=== PATIENT | female | born 1960 | race Caucasian/White ===

== ENCOUNTER 2024-10-30 16:22 | Observation (INO) | payer BC, SELFPAY ==
[2024-10-30] VITALS (7 sets, daily range): BP systolic 109–144; BP diastolic 70–96; BMI 23.8; BMI 22.6
[2024-10-30 14:55] LABS: Hematocrit 40.6 % (37.0-47.0); Hemoglobin 13.8 g/dL (12.0-16.0); Mean Corpuscular Hgb 32.5 pg (27.0-31.0); Mean Corpuscular Volume 95.5 fL (81.0-99.0); Mean Platelet Volume 10.7 fL (7.4-10.4); Platelet Count 200 10^3/uL (130-400); Red Blood Cell Count 4.25 10^6/uL (4.20-5.40); Red Cell Dist. Width 13.6 % (11.5-14.5); White Blood Cell Count 6.8 10^3/uL (4.8-10.8)
[2024-10-30 15:05] LABS: INR 0.97; PT 13.2 Sec (11.4-14.6)
[2024-10-30 15:06] LABS: APTT 31.6 Sec (23.4-35.0)
[2024-10-30 15:07] LABS: ALT (SGPT) 18 U/L (0-35); AST (SGOT) 24 U/L (14-36); Albumin 4.7 g/dl (3.5-5.0); Alkaline Phosphatase 66 U/L (38-126); Blood Urea Nitrogen 20 mg/dl (7-17); Calcium 9.9 mg/dl (8.4-10.2); Carbon Dioxide 27 mmol/L (22-30); Chloride 106 mmol/L (98-107); Glucose 88 mg/dl (70-99); Sodium 143 mmol/L (135-145); Total Bilirubin 0.8 mg/dl (0.2-1.3); Total Protein 7.3 g/dl (6.3-8.2); eGFR > 60.00
[2024-10-30 15:15] LABS: Troponin I < 0.012 ng/ml
[2024-10-30 15:20] LABS: % Basophils 0.6 % (0-2); % Eosinophils 2.6 % (0-6); % Immature Granulocytes 0.1 % (0-0.5); % Lymphocytes 52.5 % (20.5-51.1); % Monocytes 9.1 % (1.7-9.3); % Neutrophils 35.1 % (42.2-75.2); Absolute Eosinophils 0.2 10^3/uL (0-0.7); Absolute Lymphocytes 3.6 10^3/uL (1.2-3.4); Absolute Monocytes 0.6 10^3/uL (0.1-0.6); Absolute Neutrophils 2.4 10^3/uL (1.4-6.5); Nucleated Red Blood Cells % 0 %
--- NOTE | 2024-10-30 15:22 | ED.CVA ---
History of Present Illness
General
Chief Complaint: CVA/TIA Symptoms
Source: patient
Exam Limitations: none
Time Seen by Provider: 10/30/24 15:02
Nursing documentation reviewed up to this point in time: agreed with
Onset of Stroke Symptoms
Onset of symptoms known: Yes
Date of onset of symptoms: 10/30/24
History of Present Illness
History of Present Illness:
64-year-old female with no reported chronic medical issues presents to the emergency room with her for evaluation of left arm numbness and slurred speech. Patient reports onset of symptoms while she was talking on the phone at work around
1:30 PM. She says that she felt her left arm go completely numb and get very heavy. She was sitting down at the time, does not believe she had any weakness or numbness in the left leg. She says that a coworker asked her what was wrong and noted
that she was having slurred speech. It sounds like the symptoms lasted for a few minutes and have essentially resolved�patient says that she now only has some residual tingling in her left arm. No longer feels any weakness, numbness and no longer
feels she is slurring her speech. She says she did not have any change in her vision, did not have any headache. She has not had similar symptoms in the past. She denies any known cardiac history. She says that she was hospitalized at [facility] in April 2023�she says that she had repeated episodes of passing out and they told her that she may have had TIAs.
Review of Systems
Review of Systems
All Other Systems: ROS reviewed and negative except as documented in HPI and ROS
Constitutional: Denies fever
Respiratory: Denies trouble breathing
Cardiac: Denies chest pain
ABD/GI: Denies abdominal pain
Musculoskeletal: Denies neck pain or back pain
Neurological: Reports weakness and numbness; Denies dizzy or headache
Phy Exam
Physical Exam
Physical Exam:
General: Awake, alert; no acute distress
Head: Normocephalic, atraumatic
Eyes: Conjunctiva normal, EOMI, pupils equal round and reactive to light bilaterally, visual carmen intact
Throat: Airway intact, handling secretions
Neck: Trachea midline, supple without meningismus
Lungs: Clear to auscultation bilaterally, no wheezing, rales, rhonchi
Heart: Regular rate and rhythm, no murmurs, gallops, or rubs
Abd: Soft, non distended, nontender
Neuro: Cranial nerves intact 2 through 12, speech fluid no dysarthria or aphasia, no limb ataxia, motor and sensory intact and symmetric upper and lower extremities both proximally and distally
Skin: no rash
Extremities: No edema in extremities, warm and well-perfused
Scores
NIH Stroke Score
Level of Consciousness: 0 - Alert
LOC Questions: 0-Answers both correctly
LOC Commands: 0-Performs both correctly
Best Horizontal Gaze: 0-Normal
Visual Carmen: 0=Normal, no visual loss
Facial Palsy: 0=Normal, symmetrical
Motor - Right Arm: 0=No drift 10 seconds
Motor - Left Arm: 0=No drift 10 seconds
Motor - Right Le-No drift 5 seconds
Motor - Left Le-No drift 5 seconds
Limb Ataxia: 0-Absent
Sensation: 0-Normal
Best Language: 0-No aphasia
Dysarthria: 0-Normal
Extinction and Inattention: 0-No abnormality
Total Score:: 0
Heart Failure Risk
Heart Failure Risk Score: Not Applicable
Heart Score for Chest Pain Patients
STEMI patient?: Not applicable
Withdrawal Assessment of Alcohol
Withdrawal Assessment Completed?: Not applicable
Course
Orders/Labs/Results
Orders:
Orders
10/30/24 14:29
CT Head W/o Iv Contrast Urgent
Comment:
Reason For Exam: numbness/ slurred speech for two minutes
10/30/24 14:34
Electrocardiogram (*1) Urgent
Reason for Study: Other
Other Reason for Exam: Possible Stroke
EKG- Treatment ONCE
10/30/24 14:42
Complete Blood Count/With Diff Urgent
Comprehensive Metabolic Panel Urgent
PTT Urgent
Prothrombin Time Urgent
Troponin I Urgent
10/30/24 15:22
NEUROLOGY CONSULT Urgent
Consulting Provider: Paulina Amato
Was physician already notified: Yes
10/30/24 15:35
CT Head & Neck Angio W/wo IV Urgent
Comment:
Reason For Exam: left arm numb/weak, slurred speech
Aspirin 325 mg PO NOW STA
Clopidogrel Bisulfate [Plavix] 300 mg PO NOW STA
Abnormal Lab Results
10/30/24
14:42
MCH 32.5 H pg
(27.0-31.0)
MPV 10.7 H fL
(7.4-10.4)
Absolute Lymphs (auto) 3.6 H 10^3/uL
(1.2-3.4)
Neutrophils % 35.1 L %
(42.2-75.2)
Lymphocytes % 52.5 H %
(20.5-51.1)
BUN 20 H mg/dl
(7-17)
10/30/24 14:42
10/30/24 14:42
Vital Signs
Initial and Last Documented VS:
Initial Vital Signs
Temp Pulse Resp BP Pulse Ox
37.1 C 65 18 136/96 97
10/30/24 14:29 10/30/24 14:29 10/30/24 14:10/30/24 14:10/30/24 14:29
Last Documented Vital Signs
Temp Pulse Resp BP Pulse Ox
37.1 C 65 18 136/96 97
10/30/24 14:29 10/30/24 14:29 10/30/24 14:29 10/30/24 14:29 10/30/24 14:29
MDM/Problems Addressed
Differential Diagnosis Includes:
TIA, stroke, complex migraine, seizure, radiculopathy
MDM/Problems Addressed:
64-year-old female presents for evaluation after transient left arm numbness/heaviness and slurred speech. Symptoms have essentially resolved although she reports some persistent tingling in the left arm. Vitals and exam as above. She had labs
done in triage including CBC and CMP. Check EKG. She was sent for CT head in triage�radiology report pending but on my independent review no acute pathology noted. No stroke alert for now given resolution of symptoms but concern clinically for
TIA. Discussed case with neurology for evaluation at bedside. Monitor closely reassess after the above.
Neurology evaluated bedside�recommended CTA head and neck, full dose aspirin and Plavix, admit to hospitalist service. Case discussed with hospitalist.
*Radiology
Radiology exam reviewed: preliminary read by ED provider and radiology read reviewed
*Pulse Oximetry
Patient hypoxic: no
*EKG
Interpreted by ED Provider?: Yes
Heart Rate: 57
Rate: bradycardiac
Rhythm: sinus
Sutter: normal axis
Interval: normal interval
QRS Pattern: normal QRS
Ischemia: no ischemia
*Critical Care Note
Total Time (30-74mins, 75-104mins- exclusive of procedures): Not Applicable
Data Reviewed
Source: patient and spouse
Patient Management
Discussion with other providers: Hospitalist (Discussed with hospitalist) and Material Liaison (Discussed with neurology)
Escalation/DeEscalation of care consider admission/obs:
Admission indicated
ED Attending Note
-
Portions of this chart may have been created with voice recognition software.� Occasional wrong word or��sound alike� substitutions may have occurred due to the inherent limitations of voice recognition software.
Discharge Plan
Departure
Discharge Problem:
TIA (transient ischemic attack)
Interventions
Interventions:
*Risk Screen - Suicide Last Done: 10/30/24 14:30
*General Assessment Last Done: 10/30/24 14:30
*ED- Fall Risk Assessment Last Done: 10/30/24 15:38
*ED COVID-19 Vaccine History Last Done: 10/30/24 15:38
Discharge Date and Time
Print Language: YI
--- NOTE | 2024-10-30 15:55 | CON.NEURO ---
Consultation
Order
Date of Consultation: 10/30/24
Requesting Provider: Luc Hinojosa MD
Reason for Consult: Stroke symptoms
Neurology Consultation Note.
HPI: This is a 64-year-old right-handed woman who presented to [facility] on 10/30/2024 with speech and sensory abnormalities. According to the patient she developed simultaneous acute numbness in the left hand involving all digits
and distal forearm with associated transient dysarthria noted by her coworker at 1:30 PM today. No reports of change in vision, strength, balance, abnormal movements, headache with similar episodes in the past.
ER VS: 136/96, 65, afebrile
EKG: Sinus bradycardia at 57, QTc�401 ms
Labs: Normal WBCs, glucose, platelets
CT head wo contrast� mild atrophy, no acute infarcts.
PMH: Squamous cell carcinoma, cervical DJD
PSH: right dorsal wrist skin biopsy, tubal ligation, splenectomy, appendectomy
SH: , district resource officer, non-smoker, social alcohol use
FH: Father�gastric cancer, mother� acutely in her 80s
All:NKDA
ROS: Constitutional: Negative. Negative for chills, fever and unexpected weight change.
HENT: Negative for ear pain, hearing loss, tinnitus and trouble swallowing.
Eyes: Negative. Negative for photophobia, pain and visual disturbance.
Respiratory: Negative for cough, choking and shortness of breath.
Cardiovascular: Negative for chest pain, palpitations and leg swelling.
Gastrointestinal: Negative for abdominal pain and vomiting.
Endocrine: Negative. Negative for cold intolerance.
Genitourinary: Negative for dysuria, flank pain and urgency.
Musculoskeletal: Negative for back pain, gait problem, neck pain and neck stiffness.
Skin: Negative for rash.
Allergic/Immunologic: Negative. Negative for immunocompromised state.
Neurological: Positive for transient dysarthria, ongoing left hand numbness
Psychiatric/Behavioral: Negative for behavioral problems, confusion and hallucinations.
General: Well developed. In no acute distress.
Cardio: Regular rate and rhythm without murmur. Extremities are without cyanosis or edema.
Neuro:
Mental Status: Alert, oriented to person, place, and date. Normal attention and recall. Good fund of knowledge. Follows complex requests across the midline. Comprehension, naming, and repetition intact. Immediate and delayed recall 3/3.
Cranial Nerves: Pupils are equally round and reactive to light. EOMs full. Visual carmen full to confrontation. No ptosis. No nystagmus. V1-V3 intact to light touch and pinprick bilaterally, symmetric. Face symmetric. Normal hearing AU. The
palate elevated well. SCMs and traps 5/5. Tongue midline. No dysarthria.
Motor: Normal bulk and tone. No pronator or arm drift. Strength 5/5 throughout. No clonus.
Reflexes: 2+ throughout the upper extremities and knees. Plantar responses flexor bilaterally. Negative Cassandra's bilaterally
Sensory: Normal light touch. No extinction to DSS
Coordination: No dysmetria or tremor.
Gait: deferred
NIH -1
Assessment and Plan:
I. Right subcortical infarct. Not a candidate for IV TNK due to low NIH stroke scale and clinical improvement
II. History of splenectomy
III. Asymptomatic sinus bradycardia
-Continue Telemetry monitoring
-Plavix load, continue DAPT for 21 days
-MRI without fady
-Please follow-up CTA head and neck results
-Check lipid panel, hemoglobin A1c, EtOH level, urine drug tox
-Will follow-up
-DVT prophylaxis.
I personally reviewed all radiology and labs along with past medical records pertinent to current medical problems. Total time spent in patient care is 60 minutes.
Thank you for allowing us to participate in the care of this patient. We will continue to follow. Please do not hesitate to contact us with any questions or concerns.
Subjective/Objective
Subjective Data
Date of Service: October 30, 2024
Objective Data
Vital Signs
Temp Pulse Resp BP Pulse Ox
37.1 C 65 18 136/96 97
10/30/24 14:29 10/30/24 14:29 10/30/24 14:29 10/30/24 14:29 10/30/24 14:29
Lab Results
10/30/24 14:42
10/30/24 14:42
PT 13.2 Sec (11.4-14.6) 10/30/24 14:42
INR 0.97 10/30/24 14:42
APTT 31.6 Sec (23.4-35.0) 10/30/24 14:42
Sodium 143 mmol/L (135-145) 10/30/24 14:42
Potassium 4.0 mmol/L (3.5-5.1) 10/30/24 14:42
BUN 20 mg/dl (7-17) H 10/30/24 14:42
Glucose 88 mg/dl (70-99) 10/30/24 14:42
Calcium 9.9 mg/dl (8.4-10.2) 10/30/24 14:42
Patient Allergies
No Known Allergies Allergy (Verified 10/30/24 14:30)
Vital Signs and Labs
-
Vital Signs and Labs:
Vital Signs
Temp Pulse Resp BP Pulse Ox
37.1 C 65 18 136/96 97
10/30/24 14:29 10/30/24 14:29 10/30/24 14:29 10/30/24 14:29 10/30/24 14:29
Lab Results
10/30/24 14:42
10/30/24 14:42
PT 13.2 Sec (11.4-14.6) 10/30/24 14:42
INR 0.97 10/30/24 14:42
APTT 31.6 Sec (23.4-35.0) 10/30/24 14:42
Sodium 143 mmol/L (135-145) 10/30/24 14:42
Potassium 4.0 mmol/L (3.5-5.1) 10/30/24 14:42
BUN 20 mg/dl (7-17) H 10/30/24 14:42
Glucose 88 mg/dl (70-99) 10/30/24 14:42
Calcium 9.9 mg/dl (8.4-10.2) 10/30/24 14:42
--- NOTE | 2024-10-30 16:06 | HPS.HSE ---
Family Physician
-
Family Physician:
Chief Complaint
-
left arm numbness and slurred speech
History of Present Illness
HPI
64F Rt handed , no significant PMHx seen at ER:
- evaluation of left arm numbness and slurred speech
- Patient reports onset of symptoms while she was talking on the phone at work around 1:30 PM. S
- she felt her left arm go completely numb and get very heavy
- she does not believe she had any weakness or numbness in the left leg.
- coworker a noted that she was having slurred speech.
- the symptoms lasted for a few minutes and have essentially resolved
- now only has some residual tingling in her left arm.
- No longer feels any weakness, numbness
- no longer feels she is slurring her speech
- no change in her vision, did not have any headache.
- not had similar symptoms in the past.
- denies any known cardiac history.
HX admission at [facility] in April 2023 for repeated episodes of passing out and they told her that she may have had TIAs.
Medical History
Past Medical History
Past Medical History: Reports Other
Additional Past Medical History:
HX admission at [facility] in April 2023 for repeated episodes of passing out and they told her that she may have had TIAs.
Past Surgical History: Reports None
Social History
Tobacco: Non-smoker
Alcohol: None
Living: With Family
Family History
Family History: Not pertinent
Allergies / Home Medications
Allergies reflects when Allergies were last updated in [facility].
Home Medications with original date entered in [facility]
Allergy/Medication List:
Allergies
Allergy/AdvReac Type Severity Reaction Status Date / Time
No Known Allergies Allergy Verified 10/30/24 14:30
Home Medications
Prevagen 1 cap PO DAILY 10/30/24
biotin 10,000 mcg chewable tablet (Hair, Skin and Nails (biotin)) 10,000 mcg PO DAILY 10/30/24
calcium 600 mg (as carbonate)-vitamin D3 5 mcg (200 unit) tablet 1 tab PO DAILY 10/30/24
therapeutic multivitamin 1 tab PO DAILY 10/30/24
Review of Systems
-
Constitutional: Reports No Symptoms
EENT: Reports No Symptoms
Respiratory: Reports No Symptoms
Cardiac: Reports No Symptoms
Abdomen/GI: Reports No Symptoms
: Reports No Symptoms
Musculoskeletal: Reports No Symptoms
Skin: Reports No Symptoms
Neurological: Reports See HPI
Endocrine: Reports No Symptoms
Hematologic/Lymphatic: Reports No Symptoms
Psych: Reports No Symptoms
Physical Exam
Vital Signs
Vital Signs
Temp Pulse Resp BP Pulse Ox
98.7 F 65 18 136/96 97
10/30/24 14:29 10/30/24 14:29 10/30/24 14:29 10/30/24 14:29 10/30/24 14:29
Physical Exam
General: Well Developed, Well Nourished and No Apparent Distress
HEENT: NormoCephalic, Moist mucous membranes and Atraumatic
Respiratory: Clear
Cardiac: S1/S2 and Regular Rhythm; No Murmur or Rub
GI: Soft, Non Tender, Non Distended and Normal Bowel Sounds; No Organomegaly
Rectal: Deferred by Provider
Musculoskeletal: No Clubbing, No Cyanosis and No Edema
Skin: No Rash
Neuro: Nonfocal/grossly intact, Cranial Nerves Intact and Other (NIH zerto upon admission , Cranial nerves intact 2 through 12, speech fluent , no dysarthria or aphasia, no limb ataxia, motor and sensory intact and symmetric upper and lower
extremities both proximally and distally); No Slurred Speech or Facial Droop
Psych: Calm
Laboratory Results
-
10/30/24 14:42
10/30/24 14:42
Laboratory Results
PT 13.2 Sec (11.4-14.6) 10/30/24 14:42
INR 0.97 10/30/24 14:42
APTT 31.6 Sec (23.4-35.0) 10/30/24 14:42
Total Bilirubin 0.8 mg/dl (0.2-1.3) 10/30/24 14:42
AST 24 U/L (14-36) 10/30/24 14:42
ALT 18 U/L (0-35) 10/30/24 14:42
Alkaline Phosphatase 66 U/L (38-126) 10/30/24 14:42
Troponin I < 0.012 ng/ml 10/30/24 14:42
Data Reviewed
-
CT Scan: Image Personally Visualized and interpreted and Other (pending CTA H & N )
Medical Tests (Nuc Med, Echo, EKG etc): Report Reviewed by me
Lab Data: Labs Reviewed by me
Impression/Plan
-
Vital Signs
Temp Pulse Resp BP Pulse Ox
98.7 F 65 18 136/96 97
10/30/24 14:29 10/30/24 14:29 10/30/24 14:29 10/30/24 14:29 10/30/24 14:29
Labs
10/30/24
14:42
WBC 6.8
Hgb 13.8
Plt Count 200
BUN 20 H
Creatinine 0.7
eGFR > 60.00
Troponin I < 0.012
EKG
SINUS BRADYCARDIA
LOW VOLTAGE QRS
BORDERLINE ECG
NO PREVIOUS ECGS AVAILABLE
Confirmed by MADDY LEROY MD ([id number]) on 10/30/2024 3:17:42 PM
HCT pending report
CTA H & N pending
NO PRIOR hospitalist admission:
ASSESSMENT & PLAN
TIA/CVA to evaluate
- pw transient left arm numbness/weakness and slurred speech
- sxs resolved except some tingling LUE
- seen by neuro (Dr. Amato) who rec'd ASA/Plavix
- CTA head/neck, admission.
- Brain mTI
- ECHO
- A1C and Lipids
- Neuro consult follow up
DVT Px: SCD
Full code
Obs TLM
[2024-10-30] MEDS: ASPIRIN 325 MG PO (16:22)
[2024-10-30] MEDS: PLAVIX 300 MG PO (16:22)
[2024-10-30] MEDS: LIPITOR 20 MG PO (19:05)
[2024-10-31] VITALS (7 sets, daily range): BP systolic 111–130; BP diastolic 73–85; PULSE 68
[2024-10-31] MEDS: PLAVIX 75 MG PO (07:43)
[2024-10-31] MEDS: LOW STRENGTH ASPIRIN 81 MG PO (07:43)
--- NOTE | 2024-10-31 08:58 | PTOTSP ---
Speech Therapy Evaluation:
Pt presents with functional oral phase and no signs concerning for pharyngeal dysphagia/aspiration. Currently, imaging negative, pt afebrile, pt on room air, WBC WNL, and pt passed 3oz swallow screen. Pt denied any previous/current swallow
dysfunction or hx of PNAs.
Recommend:
1. Continue IDDSI Level 7 (regular) solids and thin liquids
2. Medications as tolerated
3. General aspiration precautions
4. HONEY EXTRACTOR to s/o - please reconsult if indicated
[2024-10-31 09:03] LABS: HDL Cholesterol 66 mg/dl; LDL Cholesterol, Calculated 94 mg/dl; Total Cholesterol 176 mg/dl (50-199); Triglyceride 84 mg/dl (10-149); Very Low Density Lipoprotein 16 mg/dl (0-30)
[2024-10-31 10:22] LABS: Glycohemoglobin (HgbA1c) 5.3 % (4.0-5.6)
--- NOTE | 2024-10-31 10:49 | W.PN.NEURO.1 ---
Today's Communication / Plan
-
.
Subjective/Objective
Subjective Data
Date of Service: October 31, 2024
Neurology follow-up note
Ms. Orona states that her left hand numbness have completely resolved in 6 hours after symptom onset. No reports of headaches, change in speech, vision or strength.
The patient has been normotensive and afebrile.
Brain MRI is pending.
LDL�94.
PMH: Squamous cell carcinoma, cervical DJD
PSH: right dorsal wrist skin biopsy, tubal ligation, splenectomy, appendectomy
SH: , hotel security officer, non-smoker, social alcohol use
FH: Father�gastric cancer, mother� acutely in her 80s
All:NKDA
ROS: Constitutional: Negative. Negative for chills, fever and unexpected weight change.
HENT: Negative for ear pain, hearing loss, tinnitus and trouble swallowing.
Eyes: Negative. Negative for photophobia, pain and visual disturbance.
Respiratory: Negative for cough, choking and shortness of breath.
Cardiovascular: Negative for chest pain, palpitations and leg swelling.
Gastrointestinal: Negative for abdominal pain and vomiting.
Endocrine: Negative. Negative for cold intolerance.
Genitourinary: Negative for dysuria, flank pain and urgency.
Musculoskeletal: Negative for back pain, gait problem, neck pain and neck stiffness.
Skin: Negative for rash.
Allergic/Immunologic: Negative. Negative for immunocompromised state.
Neurological: Positive for transient dysarthria and left hand numbness
Psychiatric/Behavioral: Negative for behavioral problems, confusion and hallucinations.
General: Well developed. In no acute distress.
Cardio: Regular rate and rhythm without murmur. Extremities are without cyanosis or edema.
Neuro:
Mental Status: Alert, oriented to person, place, and date. Normal attention and recall. Good fund of knowledge. Follows complex requests across the midline. Comprehension, naming, and repetition intact. Immediate and delayed recall 3/3.
Cranial Nerves: Pupils are equally round and reactive to light. EOMs full. Visual carmen full to confrontation. No ptosis. No nystagmus. V1-V3 intact to light touch and pinprick bilaterally, symmetric. Face symmetric. Normal hearing AU. The
palate elevated well. SCMs and traps 5/5. Tongue midline. No dysarthria.
Motor: Normal bulk and tone. No pronator or arm drift. Strength 5/5 throughout. No clonus.
Reflexes: 2+ throughout the upper extremities and knees. Plantar responses flexor bilaterally. Negative Cassandra's bilaterally
Sensory: Normal light touch. No extinction to DSS
Coordination: No dysmetria or tremor.
Gait: deferred
NIH -1
Assessment and Plan:
I. TIA
II. History of splenectomy
III. Asymptomatic sinus bradycardia
-Continue Telemetry monitoring
-Plavix load, continue DAPT for 21 days.
-Lipitor 40 mg once a day
-MRI without fady
-Please follow-up CTA head and neck results
-Please follow-up hemoglobin A1c, EtOH level, urine drug tox
-Will follow-up
-DVT prophylaxis.
I personally reviewed all radiology and labs along with past medical records pertinent to current medical problems. Total time spent in patient care is 35 minutes.
Thank you for allowing us to participate in the care of this patient. We will continue to follow. Please do not hesitate to contact us with any questions or concerns.
Objective Data
Vital Signs
Temp Pulse Resp BP Pulse Ox
36.4 C 60 20 115/73 97
10/31/24 07:30 10/31/24 07:30 10/31/24 07:30 10/31/24 07:30 10/31/24 07:30
Lab Results
10/30/24 14:42
10/30/24 14:42
PT 13.2 Sec (11.4-14.6) 10/30/24 14:42
INR 0.97 10/30/24 14:42
APTT 31.6 Sec (23.4-35.0) 10/30/24 14:42
Sodium 143 mmol/L (135-145) 10/30/24 14:42
Potassium 4.0 mmol/L (3.5-5.1) 10/30/24 14:42
BUN 20 mg/dl (7-17) H 10/30/24 14:42
Glucose 88 mg/dl (70-99) 10/30/24 14:42
Calcium 9.9 mg/dl (8.4-10.2) 10/30/24 14:42
LDL Cholesterol, Calc 94 mg/dl 10/31/24 07:30
Patient Allergies
No Known Allergies Allergy (Verified 10/30/24 14:30)
Vital Signs and Labs
-
Vital Signs and Labs:
Vital Signs
Temp Pulse Resp BP Pulse Ox
36.4 C 60 20 115/73 97
10/31/24 07:30 10/31/24 07:30 10/31/24 07:30 10/31/24 07:30 10/31/24 07:30
Lab Results
10/30/24 14:42
10/30/24 14:42
PT 13.2 Sec (11.4-14.6) 10/30/24 14:42
INR 0.97 10/30/24 14:42
APTT 31.6 Sec (23.4-35.0) 10/30/24 14:42
Sodium 143 mmol/L (135-145) 10/30/24 14:42
Potassium 4.0 mmol/L (3.5-5.1) 10/30/24 14:42
BUN 20 mg/dl (7-17) H 10/30/24 14:42
Glucose 88 mg/dl (70-99) 10/30/24 14:42
Calcium 9.9 mg/dl (8.4-10.2) 10/30/24 14:42
LDL Cholesterol, Calc 94 mg/dl 10/31/24 07:30
Medications
-
Medications:
Generic Name Dose Route Start Last Admin
Trade Name Freq PRN Reason Stop Dose Admin
Acetaminophen 650 mg 10/30/24 18:14
Acetaminophen 650 Mg Rectal Suppository RECTAL 11/27/24 18:13
Q4HPRN PRN
RAINEY, mild pain, or temp >100.4F
Acetaminophen 650 mg 10/30/24 18:14
Acetaminophen 325 Mg Tablet PO 11/27/24 18:13
Q4HPRN PRN
RAINEY, mild pain, or temp >100.4F
Aspirin 81 mg 10/31/24 08:00 10/31/24 07:43
Aspirin 81 Mg Chewable Tablet PO 11/28/24 07:59 81 mg
DAILY ALEJANDRA Administration
Atorvastatin Calcium 20 mg 10/30/24 18:14 10/30/24 19:05
Atorvastatin (Lipitor) 20 Mg Tablet PO 11/27/24 18:13 20 mg
QPM ALEJANDRA Administration
Clopidogrel Bisulfate 75 mg 10/31/24 08:00 10/31/24 07:43
Clopidogrel 75 Mg Tablet PO 11/28/24 07:59 75 mg
DAILY ALEJANDRA Administration
Sodium Chloride 0 flush 10/30/24 19:00
Sodium Chloride 0.9% (Flush) Syringe IV 11/27/24 18:59
PER PROTOCOL ALEJANDRA
Home Medications
-
Home Medications
Prevagen 1 cap PO DAILY 10/30/24
biotin 10,000 mcg chewable tablet (Hair, Skin and Nails (biotin)) 10,000 mcg PO DAILY 10/30/24
calcium 600 mg (as carbonate)-vitamin D3 5 mcg (200 unit) tablet 1 tab PO DAILY 10/30/24
therapeutic multivitamin 1 tab PO DAILY 10/30/24
--- NOTE | 2024-10-31 12:35 | CM ---
CM reviewed chart, patient seen bedside with spouse, initial assessment completed. Patient resides with spouse in a split level home, no steps to enter, four steps to split level. Patient is independent with ADLs/IADLs, denies use of DME, no VN/SNF
history. Patient confirms PCP Canelo Saucedo, [facility], confirms prescription coverage. OBS form reviewed and provided to patient, refused to sign, placed in chart. Patient hopeful for discharge today. CM will continue to follow
for all discharge planning needs.
Plan; home with spouse, on needs anticipated.
[2024-10-31] MEDS: LIPITOR 40 MG PO (17:41)
--- NOTE | 2024-10-31 18:00 | W.PN.HOSP.TC ---
Addendum entered and electronically signed by Mary Tyler MD 11/02/24 07:40:
patient called and updated regarding MRI results
Original Note:
Today's Communication/Plan
-
Discharge after MRI completed
Assessment / Plan
Assessment / Plan
Physical Exam
General: No acute distress, appears comfortable at this time.
HEENT: NormoCephalic, Moist mucous membranes and Atraumatic
Respiratory: Clear
Cardiac: S1/S2 and Regular Rhythm; No Murmur or Rub
GI: Soft, Non Tender, Non Distended and bowel sounds present
Musculoskeletal: No Clubbing, No Cyanosis and No Edema, strength 5/5 all ext's
Skin: No Rash
Neuro: AOx3 conversant coherent; No Slurred Speech or Facial Droop
Psych: Calm
64F right handed hx splenectomy, hx repeat episodes passing out evaluated at [facility] [place] Apr 2023 diagnosed as possible TIAs p/w new onset transient Lt arm numbness slurred speech concerning for CVA/TIA. Symptoms since completely resolved.
Likely TIA, CVA less likely/ruled out
-Neuro Consult appreciated DAPT 21 days, Lipitor 40 mg QPM
-CT head appreciated no acute abn's
-CTA head/neck appreciated appreciated no significant arterial stenosis aneurysm, no acute abn's, cervical degenerative disc disease noted
- A1c 5.3 nondiabetic
-lipid panel appreciated LDL 94, goal <70 stroke risk reduction
-ECHO appreciated EF 65 % moderate mitral regurgitation and possible artifact vs prominent atherosclerotic plaque noted descending aorta 1 x 1.5 cm (outpt follow up with Cardiology recommended)
-Brain MRI pending
DVT Px: SCD
Full code
Obs TLM
Discussed with patient and patient's Micky.
Patient eager to go home. Unfortunately MRI study running late. At this time low suspicion for stroke with complete symptom resolution, most likely TIA. Discussed with patient, discharge possible after MRI completed without waiting for results.
However there is risk patient may need to be called back to be re-admitted if there are alarming findings noted. Patient able to verbalize her understanding of the risks and her preference to be discharged after MRI without waiting for results.
Patient agreeable to wait for MRI in the meantime. Discharge prepared accordingly
Total Time Preparing Discharge ___40____ minutes including examination of the patient, summary of the hospital stay, instructions for continuing care to all relevant caregivers; and preparation of discharge records, prescriptions, and referral
forms if necessary.
Anticipated Discharge: Today
Subjective/Interval History
-
Date of Service: October 31, 2024
Late Entry
Seen and examined at bedside earlier in the morning. Patient no acute distress. Ambulatory without need for assist device. Reports complete resolution of symptoms. Denies new acute issues. eager to go home.
Objective Data
-
Vital Signs:
Vital Signs
Temp Pulse Resp BP Pulse Ox
99.0 F 85 22 130/76 97
10/31/24 16:11 10/31/24 16:11 10/31/24 16:11 10/31/24 16:11 10/31/24 16:11
--- NOTE | 2024-10-31 19:03 | W.DCSUMMARY ---
Discharge Summary
Discharge Data
Date of Admission: 10/30/24
Date of Discharge: 11/01/24
-
Pending Results: No
Discharge Plan
-
Patient Disposition: Home (Routine Discharge)
Discharge Diagnosis/Procedures: Transient Ischemic Attack (TIA)
Moderate Mitral Regurgitation
possible prominent atherosclerotic plaque 1 x 1.5 cm descending aorta vs artifact noted on ECHO
Cervical Degenerative Disc Disease
Condition: Good
Diet: Low Cholesterol
Activity: As tolerated
Driving Restrictions: As prior to admission
Bathing Restrictions: None
Activity Restrictions/Additional Instructions:
Follow up with primary care provider in 1 week of discharge, Cardiology in 2-4 weeks of discharge, and Neurology in 1 month of discharge.
Aspirin, Plavix, Atorvastatin have been prescribed for Transient Ischemic Attack (TIA) to reduce your risk for stroke.
Continue with Plavix through November 19, 2024 then stop.
Continue with Aspirin and Atorvastatin indefinitely or until otherwise instructed by Neurology, primary care provider, or other healthcare provider involved in your care.
Please take medications as prescribed/recommended and follow up with primary care provider and/or other healthcare provider involved in your care for refills and/or further adjustment to your medication regimen as necessary.
Referrals:
Florentin Medrano MD [Active] - in one month
Canelo Saucedo DO [Family Provider] - in one week
Luc Ruff MD [Active] - in two to four weeks
Prescriptions:
New
atorvastatin 40 mg Tablet
40 mg PO QPM Qty: 30 0RF
clopidogrel 75 mg Tablet
75 mg PO DAILY Qty: 19 0RF
Rx Instructions:
November 19, 2024 is your last day for Plavix
aspirin 81 mg Tablet,Chewable
81 mg PO DAILY Qty: 30 0RF
Continued
therapeutic multivitamin Tablet
1 tab PO DAILY
calcium carbonate-vitamin D3 600 mg-5 mcg (200 unit) Tablet
1 tab PO DAILY
Prevagen capsule
1 cap PO DAILY
Hair, Skin and Nails (biotin) 10,000 mcg Tablet,Chewable
10,000 mcg PO DAILY
Discharge Orders:
Discharge Patient (As Directed); Ordered 10/31/24
Ordered By: Mary Tyler
Discharge Date and Time
Discharge Date/Time: 10/31/24 20:15
Print Language: CAMBODIAN
== END 2024-10-31 20:15 | disposition home or self-care (01) ==
LOC: 4 WEST ACU 16:22
PROVIDERS: Emergency Medicine; ADMITTING PHYSICIAN Internal Medicine; ATTENDING PHYSICIAN Internal Medicine; CONSULT PHYSICIAN Psychiatry & Neurology Neurology; EMERGENCY PHYSICIAN Emergency Medicine; FAMILY PHYSICIAN Family Medicine
DX: G45.9 Transient cerebral ischemic attack, unspecified (principal); R47.81 Slurred speech; R20.0 Anesthesia of skin; R47.1 Dysarthria and anarthria; R00.1 Bradycardia, unspecified; I34.0 Nonrheumatic mitral (valve) insufficiency; I70.0 Atherosclerosis of aorta; M47.812 Spondylosis without myelopathy or radiculopathy, cervical region; Z85.828 Personal history of other malignant neoplasm of skin; Z90.49 Acquired absence of other specified parts of digestive tract; Z98.51 Tubal ligation status; Z90.81 Acquired absence of spleen; Z79.899 Other long term (current) drug therapy
CPT/HCPCS: 70450; 70496; 70498; 70551; 80053; 80061; 83036; 84484; 85025; 85610; 85730; 92610; 93005; 93306; 97161; 97166; 99285; G0378; Q9967